=== PATIENT | female | born 1935 | race African-American/Black ===

== ENCOUNTER 2018-01-21 11:01 | Emergency (ER) | payer MEDICARE, OTHER ==
[~2018-01-21] VITALS: Ht 160 cm; Wt 58.5 kg
[~2018-01-21 11:01] MED LIST: AZITHROMYCIN250 MG ORAL; MUCINEX D ER T1 EACH PO; NKM
[2018-01-21 11:29] VITALS: BP 150/125
[2018-01-21 11:59] LABS: APPEARANCE,URINE CLEAR; BILIRUBIN, URINE NEGATIVE (NEGATIVE); COLOR,URINE PALE YELLOW; GLUCOSE, URINE (UA) NEGATIVE (NEGATIVE); KETONES,URINE NEGATIVE (NEGATIVE); LEUKOCYTE ESTERASE ,URINE 2+ (NEGATIVE); NITRITE,URINE NEGATIVE (NEGATIVE); PH,URINE 6 (4.5-8.0); PROTEIN,URINE NEGATIVE (NEGATIVE); UROBILINOGEN,URINE NORMAL MG/DL (0.0-1.0)
--- NOTE | 2018-01-21 12:40 | Emergency Room Report ---
History of Present Illness General Chief Complaint: Multiple Trauma/Fall Source: Patient Present Illness HPI The patient was pulling suitcases backwards and fell onto her coccyx. This was Sunday. Yesterday, she bent over and felt a pulling severe pain in her rectum. This has improved without taking any medication. No numbness, incontinence, bleeding. The pain was rated at an 8 or 9/10 at the time. Now she rates it at 2/10. No abdominal pain or dysuria. No significant pain when she sits. No LOC or other extremity pain. She did not hit her head. No blood thinners. She has a h/o sciatica, but this is not bothering her. No fever, chills, chest pain, dyspnea, rashes, other extremity pain. H/O HTN Allergies: Coded Allergies: No Known Allergies (Unverified , 05/01/13) Patient History Past Medical History: see triage record Past Surgical History: hysterectomy Social History: Denies: smoking, alcohol use Social History Narrative at home Now: No Reviewed Nursing Documentation: PMH: Agreed; PSxH: Agreed Nursing Documentation-PMH Past Medical History: No History, Except For Review of Systems All Other Systems: negative except mentioned in HPI Physical Exam Vital Signs Date Time Temp Pulse Resp B/P (MAP) Pulse Ox O2 Delivery O2 Flow Rate FiO2 01/21/18 11:06 97.8 66 20 209/77 98 97.9 01/21/18 11:29 Room Air Sp02 EP Interpretation: reviewed, normal General Appearance: well appearing, no apparent distress, GCS 15 Head: normocephalic, atraumatic Eyes: bilateral eye PERRL, bilateral eye other - arcus ENT: hearing grossly normal, normal voice Neck: full range of motion, supple, no bony tend Respiratory: no respiratory distress, speaking full sentences Gastrointestinal: normal inspection Rectal: normal exam Musculoskeletal: digits/nails normal, gait/station normal, normal range of motion, pelvis stable, other - coccygeal tenderness without instability or crepetance Neurologic: alert, motor strength/tone normal, sensory intact, normal gait, speech normal Psychiatric: mood/affect normal Skin: no rash, other - no hematomata Medical Decision Making Diagnostic Impression: Primary Impression: Fall Qualified Codes: W19.XXXA - Unspecified fall, initial encounter Additional Impressions: Strain of coccyx Qualified Codes: S39.012A - Strain of muscle, fascia and tendon of lower back , initial encounter HTN (hypertension) Qualified Codes: I10 - Essential (primary) hypertension ER Course Patient presents post fall with pain in coccyx and rectum yesterday. DDx : fx, strain, contusion. Discussed x-rays and she declines. No red flag symptoms or findings. Patient reluctant to take analgesia here. Will check urine to exclude UTI. UA clear. Diagnosis is clinical. (Transient HTN noted - resolved without treatment.) Patient stable for outpatient observation and treatment. Laboratory Tests Test 01/21/18 11:38 Urine Color Pale yellow Urine Appearance Clear Urine pH 6 (4.5-8.0) Urine Specific [place] 1.015 (1.005-1.035) Urine Protein Negative (NEGATIVE) Urine Glucose (UA) Negative (NEGATIVE) Urine Ketones Negative (NEGATIVE) Urine Occult Blood 1+ (NEGATIVE) H Urine Nitrite Negative (NEGATIVE) Urine Bilirubin Negative (NEGATIVE) Urine Urobilinogen Normal MG/DL (0.0-1.0) Urine Leukocyte Esterase 2+ (NEGATIVE) H Urine RBC 0-2 /HPF (0 - 2) Urine WBC 2-4 /HPF (0 - 2) Urine Squamous Epithelial Cells Occasional /LPF Urine Bacteria Few /HPF (NONE) Last Vital Signs Date Time Temp Pulse Resp B/P (MAP) Pulse Ox O2 Delivery O2 Flow Rate FiO2 01/21/18 12:58 98.0 80 20 163/64 99 Room Air Status: improved Disposition: HOME, SELF-CARE Condition: Improved Scripts Acetaminophen (Tylenol) 325 Mg Tablet 650 MG ORAL Q6H PRN for Prn Pain/Headache/Temp > 101, #20 TAB 0 Refills Prov: Federico Nails M.D. 01/21/18 Referrals: CROINA JOSEPH MD (PCP) Federico Nails M.D. January 21, 2018 12:39
[2018-01-21] MEDS ORDERED: TYLENOL325 MG ORAL (12:45)
[2018-01-21 12:46] VITALS: BP 163/64
[2018-01-21 12:58] VITALS: BP 163/64
== END 2018-01-21 13:00 | disposition home or self-care (01) ==
LOC: EMR 11:39
DX: S39.012A Strain of muscle, fascia and tendon of lower back, initial encounter (principal); I10 Essential (primary) hypertension; Z90.710 Acquired absence of both cervix and uterus; W18.39XA Other fall on same level, initial encounter; Y92.9 Unspecified place or not applicable
CPT/HCPCS: 81003; 99283

== ENCOUNTER 2018-05-28 08:55 | Emergency (ER) | payer MEDICARE ==
[~2018-05-28] VITALS: Ht 157.5 cm; Wt 56.7 kg
[~2018-05-28 08:55] MED LIST changes: +TYLENOL325 MG ORAL
[2018-05-28 09:06] VITALS: BP 178/58
[2018-05-28 09:59] LABS: APPEARANCE,URINE CLEAR; BILIRUBIN, URINE NEGATIVE (NEGATIVE); COLOR,URINE PALE YELLOW; GLUCOSE, URINE (UA) NEGATIVE (NEGATIVE); KETONES,URINE NEGATIVE (NEGATIVE); LEUKOCYTE ESTERASE ,URINE NEGATIVE (NEGATIVE); NITRITE,URINE NEGATIVE (NEGATIVE); PH,URINE 7 (4.5-8.0); PROTEIN,URINE NEGATIVE (NEGATIVE); UROBILINOGEN,URINE NORMAL MG/DL (0.0-1.0)
[2018-05-28 10:00] LABS: BASOPHILS % (AUTO) 2.3 % (0.0-2.0); EOSINOPHILS % (AUTO) 1.5 % (0.0-3.0); HEMOGLOBIN 14.8 G/DL (12.0-16.0); LYMPHOCYTES % (AUTO) 44.1 % (20.0-45.0); MEAN CORPUSCULAR VOLUME 93 FL (80-99); MONOCYTES % (AUTO) 6.8 % (1.0-10.0); NEUTROPHILS % (AUTO) 45.3 % (45.0-75.0); PLATELET COUNT 240 K/UL (150-450); RED BLOOD COUNT 5.05 M/UL (4.20-5.40); RED CELL DISTRIBUTION WIDTH 12.4 % (11.6-14.8); WHITE BLOOD COUNT 4.6 K/UL (4.8-10.8)
[2018-05-28 10:07] LABS: ANION GAP 7 mmol/L (5-15); BLOOD UREA NITROGEN 10 mg/dL (7-18); CALCIUM 9.7 MG/DL (8.5-10.1); CARBON DIOXIDE 27 MMOL/L (21-32); CHLORIDE 105 MMOL/L (98-107); CREATININE 0.9 MG/DL (0.55-1.30); POTASSIUM 4.1 MMOL/L (3.5-5.1); SODIUM 139 MMOL/L (136-145)
[2018-05-28 10:14] LABS: ALANINE AMINOTRANSFERASE 20 U/L (12-78); ALBUMIN 3.9 G/DL (3.4-5.0); ALKALINE PHOSPHATASE 96 U/L (46-116); ASPARTATE AMINO TRANSFERASE 15 U/L (15-37); BILIRUBIN,TOTAL 0.4 MG/DL (0.2-1.0); CREATINE KINASE 81 U/L (26-308)
--- NOTE | 2018-05-28 11:00 | Diagnostic Imaging Report ---
Indication: Chest pain Technique: One view of the chest Comparison: 04/02/2014 Findings: Lungs and pleural spaces are clear. The heart size is upper limits of normal. There is no significant interim change Impression: No acute process
--- NOTE | 2018-05-28 11:18 | Emergency Room Report ---
History of Present Illness General Chief Complaint: Pain Source: Patient Present Illness HPI Patient states that she is noted lumps in her breasts. She states that her right breast has a very large lump. She states she has had these for some time. However, she states that these have not been painful. She states over the past month she has noted development of the pain. She states primarily in the right breast. She denies skin changes. She denies fever or chills. She denies nausea or vomiting. She denies cough or congestion. She is chest pain. She has shortness of breath. She has no other complaints. She has not seen her primary care physician for this. Allergies: Coded Allergies: No Known Allergies (Unverified , 05/01/13) Patient History Past Medical History: see triage record, other - Hypothyroid Past Surgical History: hysterectomy, other - Thyroidectomy Social History: Denies: smoking, alcohol use, drug use Last Menstrual Period: 1969 Now: No : 4 Para: 2 Reviewed Nursing Documentation: PMH: Agreed; PSxH: Agreed Nursing Documentation-PMH Past Medical History: No History, Except For Review of Systems All Other Systems: negative except mentioned in HPI Physical Exam Vital Signs Date Time Temp Pulse Resp B/P (MAP) Pulse Ox O2 Delivery O2 Flow Rate FiO2 05/28/18 09:02 97.7 60 16 187/76 97 Room Air 97.7 Sp02 EP Interpretation: reviewed, normal General Appearance: no apparent distress, alert, GCS 15, non-toxic Head: normocephalic, atraumatic Eyes: bilateral eye normal inspection, bilateral eye PERRL ENT: hearing grossly normal, normal pharynx, no angioedema, normal voice Neck: full range of motion, supple/symm/no masses Respiratory: chest non-tender, lungs clear, normal breath sounds, no respiratory distress, no retraction, no accessory muscle use, speaking full sentences Cardiovascular #1: regular rate, rhythm, no edema Gastrointestinal: normal bowel sounds, non tender, soft, non-distended, no guarding, no rebound Rectal: deferred Musculoskeletal: back normal, gait/station normal, normal range of motion, non- tender, other - Approx [id number] mass R. breast. Approx [id number] mass in L. breast. No skin changes or nipple changes. Neurologic: alert, oriented x3, responsive, motor strength/tone normal, sensory intact, speech normal Psychiatric: judgement/insight normal, memory normal, mood/affect normal, no suicidal/homicidal ideation Skin: normal color, no rash, warm/dry, well hydrated Medical Decision Making Diagnostic Impression: Primary Impression: Breast mass, right Additional Impression: Breast mass, left ER Course This patient was found to have a large right breast mass and a left breast mass. Laboratory workup to include CBC, CMP, cardiac enzymes, EKG and chest x- ray are all unremarkable. At this time, there is no emergency medical condition. The patient's primary care physician was contacted and an appointment has been made for the patient at 2 PM in 2 days. The patient was educated and instructed to go to this appointment for a further workup for her breast masses. She will need a mammogram and possibly a breast biopsy. Regardless, this would not be performed in the emergency department. Overall, the patient is well-appearing and nontoxic. She was given return precautions and follow-up instructions. Laboratory Tests Test 05/28/18 09:30 White Blood Count 4.6 K/UL (4.8-10.8) L Red Blood Count 5.05 M/UL (4.20-5.40) Hemoglobin 14.8 G/DL (12.0-16.0) Hematocrit 47.0 % (37.0-47.0) Mean Corpuscular Volume 93 FL (80-99) Mean Corpuscular Hemoglobin 29.4 PG (27.0-31.0) Mean Corpuscular Hemoglobin Concent 31.6 G/DL (32.0-36.0) L Red Cell Distribution Width 12.4 % (11.6-14.8) Platelet Count 240 K/UL (150-450) Mean Platelet Volume 7.0 FL (6.5-10.1) Neutrophils (%) (Auto) 45.3 % (45.0-75.0) Lymphocytes (%) (Auto) 44.1 % (20.0-45.0) Monocytes (%) (Auto) 6.8 % (1.0-10.0) Eosinophils (%) (Auto) 1.5 % (0.0-3.0) Basophils (%) (Auto) 2.3 % (0.0-2.0) H Urine Color Pale yellow Urine Appearance Clear Urine pH 7 (4.5-8.0) Urine Specific [place] 1.015 (1.005-1.035) Urine Protein Negative (NEGATIVE) Urine Glucose (UA) Negative (NEGATIVE) Urine Ketones Negative (NEGATIVE) Urine Blood Negative (NEGATIVE) Urine Nitrite Negative (NEGATIVE) Urine Bilirubin Negative (NEGATIVE) Urine Urobilinogen Normal MG/DL (0.0-1.0) Urine Leukocyte Esterase Negative (NEGATIVE) Sodium Level 139 MMOL/L (136-145) Potassium Level 4.1 MMOL/L (3.5-5.1) Chloride Level 105 MMOL/L (98-107) Carbon Dioxide Level 27 MMOL/L (21-32) Anion Gap 7 mmol/L (5-15) Blood Urea Nitrogen 10 mg/dL (7-18) Creatinine 0.9 MG/DL (0.55-1.30) Estimate Glomerular Filtration Rate mL/min (>60) Glucose Level 94 MG/DL (74-106) Calcium Level 9.7 MG/DL (8.5-10.1) Total Bilirubin 0.4 MG/DL (0.2-1.0) Aspartate Amino Transferase (AST) 15 U/L (15-37) Alanine Aminotransferase (ALT) 20 U/L (12-78) Alkaline Phosphatase 96 U/L (46-116) Total Creatine Kinase 81 U/L (26-308) Troponin I 0.000 ng/mL (0.000-0.056) Total Protein 7.9 G/DL (6.4-8.2) Albumin 3.9 G/DL (3.4-5.0) Globulin 4.0 g/dL Albumin/Globulin Ratio 1.0 (1.0-2.7) EKG Diagnostic Results Rate: bradycardiac Rhythm: other - s.fuad ST Segments: no acute changes Rhythm Strip Diag. Results EP Interpretation: yes Rate: 50's Rhythm: no PVC's, no ectopy, other - S.bradycardia Chest X-Ray Diagnostic Results Chest X-Ray Diagnostic Results : Chest X-Ray Ordered: Yes # of Views/Limited/Complete: 1 View Indication: Other Interpretation: no consolidation, no effusion, no pneumothorax, no acute cardiopulmonary disease Impression: No acute disease Electronically Signed by: Adam Last Vital Signs Date Time Temp Pulse Resp B/P (MAP) Pulse Ox O2 Delivery O2 Flow Rate FiO2 05/28/18 09:06 97.9 55 13 178/58 100 Room Air 97.9 Status: improved Disposition: HOME, SELF-CARE Condition: Stable Referrals: NON PHYSICIAN (PCP) Reina Fernandez DO May 28, 2018 11:18
[2018-05-28 11:31] VITALS: BP 175/69
--- NOTE | 2018-05-28 16:28 | Diagnostic Imaging Report ---
Indication: Bilateral palpable breast lumps Technique: Grayscale and duplex images of palpable abnormalities in the bilateral breasts Comparison: None Findings: In the right breast, there is a densely shadowing mass measuring 2.5 x 2.1 x 3.4 cm in diameter. This corresponds to the palpable abnormality at approximately 10:00 In the the left breast, corresponding to the palpable abnormality, there is a mass which is isoechoic, measures 2.7 x 1.4 x 3.5 cm. Impression: Bilateral solid breast masses, as described, corresponding to palpable abnormality. Malignancy certainly possible. Recommend further workup with diagnostic mammography BI-RADS category 0-needs further imaging evaluation
--- NOTE | 2018-05-30 19:04 | Cardiology Report ---
APPROVED REPORT EKG Measurement Heart [id number] AL [id number] Sinus bradycardia Anterior infarct, age undetermined Abnormal ECG
== END 2018-05-28 11:41 | disposition home or self-care (01) ==
LOC: EMR 09:20
DX: N63.10 Unspecified lump in the right breast, unspecified quadrant (principal); N63.20 Unspecified lump in the left breast, unspecified quadrant
CPT/HCPCS: 36415; 71045; 80053; 81003; 82550; 84484; 85025; 93005; 99284